=== PATIENT | male | born 1935 | race Caucasian/White ===

== ENCOUNTER → 2017-03-06 | Outpatient (CLI) | payer MEDICARE ==
[2016-03-23 11:00] VITALS: BP 120/81
[~2017-03-06] MED LIST: ALPR0.5T6 PO; ASPI-482 PO; CALC-98 PO; CEFU500T46 PO; DOCU100C53 PO; FERR-3 PO; HYDR-2758 PO; Hydrocodone/Acetaminophen PO; MELO15TA6 PO; METO-269 PO; METO25TA2 PO; METO50TA4 PO; MULT-246 PO; OXYC1TAB7 PO; PRED5TAB PO; SIMV40TA3 PO; SIMV80TA PO
--- NOTE | 2017-03-06 15:19 | CARD ---
APPROVED REPORT EXAM: Two-dimensional and M-mode echocardiogram with Doppler and color Doppler. Other Information Quality : Good INDICATION Cardiac Disease: CAD 2D DIMENSIONS Left Atrium(2D)3.1 (1.6-4.0cm)IVSd1.2 (0.7-1.1cm) Aortic Root(2D)2.9 (2.0-3.7cm)LVDd4.2 (3.9-5.9cm) LVOT Diameter2.4 (1.8-2.4cm)PWd1.1 (0.7-1.1cm) LVDs3.5 (2.5-4.0cm)FS (%) 17.2 % SV29.0 mlLVEF(%)35.0 (>50%) Aortic Valve AoV Peak Newton.92.9cm/sAoV VTI12.5cm AO Peak GR.3.5mmHgLVOT Peak Newton.60.1cm/s LVOT VTI 8.67cmAO Mean GR.2mmHg PAT (VMAX)2.79eo4FEU (VTI)3.12cm2 AI P 1/2 Afll093dm Mitral Valve MV E Oeomjdwn867.7cm/sMV DECEL AOOH812ud MV A Yshrallu90.4cm/sMV VVS00lf E/A Ratio2.0MVA (PHT)6.51cm2 TDI E/Medial E'12.4 Tricuspid Valve TR P. Wqxnmpvq071ol/sRAP [id number] TR Peak Gr.[id number] LEFT VENTRICLE The left ventricle is normal size. There is mild concentric left ventricular hypertrophy. Moderate le ft ventricular systolic dysfunction. The Ejection Fraction is 30-35%. There is global hypokinesis of the left ventricle. RIGHT VENTRICLE The right ventricle is normal size. The right ventricular systolic function is normal. ATRIA The left atrium size is normal. The right atrium size is normal. The interatrial septum is intact wit h no evidence for an atrial septal defect or patent foramen ovale as noted on 2-D or Doppler imaging. AORTIC VALVE The aortic valve is calcified but opens well. Doppler and Color Flow revealed mild to moderate aortic regurgitation. There is no significant aortic valvular stenosis. MITRAL VALVE The mitral valve is normal in structure and function. There is no evidence of mitral valve prolapse. There is no mitral valve stenosis. Doppler and Color-flow revealed trace mitral regurgitation. TRICUSPID VALVE The tricuspid valve is normal in structure and function. Doppler and Color Flow revealed trace tricus pid regurgitation. The PA pressure was estimated at 27 mmHg. There is no tricuspid valve stenosis. PULMONIC VALVE The pulmonary valve is normal in structure and function. Doppler and Color Flow revealed no pulmonic valvular regurgitation. There is no pulmonic valvular stenosis. GREAT VESSELS The aortic root is normal in size. The ascending aorta is normal in size. The IVC was not visualized. PERICARDIAL EFFUSION There is no evidence of significant pericardial effusion. Critical Notification Critical Value: No <Conclusion> Moderate left ventricular systolic dysfunction. The Ejection Fraction is 30-35%. Pacemaker wire noted right ventricle. Mild to moderate aortic regurgitation. Trace mitral regurgitation. Trace tricuspid regurgitation. The PA pressure was estimated at 27 mmHg. There is no evidence of significant pericardial effusion.
== END | disposition home or self-care (01) ==
LOC: ECHO 12:31
PROVIDERS: ATTEND Internal Medicine Cardiovascular Disease
DX: I08.2 Rheumatic disorders of both aortic and tricuspid valves (principal); I25.10 Atherosclerotic heart disease of native coronary artery without angina pectoris; Z95.0 Presence of cardiac pacemaker
CPT/HCPCS: 93306

== ENCOUNTER → 2017-07-27 | Outpatient (CLI) | payer MEDICARE | END | disposition home or self-care (01) | LOC: RAD 09:38 | DX: M19.012 Primary osteoarthritis, left shoulder (principal); M17.0 Bilateral primary osteoarthritis of knee; Z95.0 Presence of cardiac pacemaker | CPT/HCPCS: 73030; 73562 ==

== ENCOUNTER 2018-01-10 11:46 | Inpatient (IN) | payer MEDICARE ==
[2018-01-10 12:13] LABS: ADD MAN DIFF? NO
[2018-01-10 12:18] LABS: BASO % 1 % (0-3); EOS # 0.1 x10^3/uL (0.0-0.7); EOS % 1 % (0-3); HEMATOCRIT 44.2 % (39.0-53.0); HEMOGLOBIN 15.2 g/dL (13.0-17.5); LYMPH # 1.6 x10^3/uL (1.0-4.8); LYMPH % 19 % (24-48); MEAN CORPUSCULAR HEMOGLOBIN 31 pg (25-35); MEAN CORPUSCULAR HGB CONC 34 g/dL (31-37); MEAN CORPUSCULAR VOLUME 90 fL (79-100); MONO # 0.4 x10^3/uL (0.0-1.1); MONO % 5 % (0-9); NEUT # 6.3 x10^3uL (1.8-7.7); NEUT % 76 % (31-73); PLATELET COUNT 228 x10^3/uL (140-400); RED BLOOD COUNT 4.92 x10^6/uL (4.30-5.70); RED CELL DISTRIBUTION WIDTH 12.4 % (11.5-14.5); WHITE BLOOD COUNT 8.3 x10^3/uL (4.0-11.0)
[2018-01-10] MEDS: IV NORMAL SALINE 500ML BAG 500 ML IV (12:18)
[2018-01-10 12:21] LABS: ANION GAP 9 (6-14); BLOOD UREA NITROGEN 10 mg/dL (8-26); CALCIUM 9.6 mg/dL (8.5-10.1); CARBON DIOXIDE 28 mmol/L (21-32); CHLORIDE 98 mmol/L (98-107); GFR 71.4; GLUCOSE 131 mg/dL (70-99); POTASSIUM 4.2 mmol/L (3.5-5.1); SODIUM 135 mmol/L (136-145)
[2018-01-10] MEDS ORDERED: CONTRAST GIVEN. MC (12:30)
[2018-01-10] MEDS ORDERED: ASPIRIN CHEWABLE 81 MG TABLET. PO (12:30)
[2018-01-10] MEDS: IOHEXOL 300 MG/ML 100ML VIAL. IV (12:30)
[2018-01-10 12:35] LABS: TROPONINI < 0.017 ng/mL (0.000-0.055)
[2018-01-10 12:45] LABS: INR 1.1 (0.8-1.1); PROTHROMBIN TIME PATIENT 13.2 SEC (11.7-14.0)
[2018-01-10 12:46] LABS: PARTIAL THROMBOPLASTIN TIME 27 SEC (24-38)
[2018-01-10] MEDS: IV NORMAL SALINE 1000ML BAG 1,000 ML IV (12:48)
[2018-01-10] MEDS ORDERED: ONDANSETRON PF 4 MG/2 ML VIAL. IV ×2 (13:00→15:30)
[2018-01-10] MEDS ORDERED: ACETAMINOPHEN 325 MG TABLET. PO ×2 (13:00→15:30)
[2018-01-10] MEDS: ASPIRIN 300 MG SUPP.RECT PR (13:26)
[2018-01-10 14:13] LABS: THYROID STIM HORMONE (TSH) 1.024 uIU/mL (0.358-3.74)
[2018-01-10] MEDS ORDERED: DOCUSATE SODIUM 100 MG CAPSULE. PO (15:30)
[2018-01-10] MEDS ORDERED: HYDROcodone/APAP 5/325MG 1 TAB TABLET PO (15:30)
[2018-01-10] MEDS ORDERED: hydrALAZINE 20 MG/ML VIAL. IVP (15:30)
[2018-01-10] MEDS ORDERED: MORPHINE SULFATE 2 MG/ML DISP.SYRIN. IV (15:30)
[2018-01-10] MEDS ORDERED: traMADol 50 MG TABLET PO (15:30)
[2018-01-10 16:28] LABS: TROPONINI < 0.017 ng/mL (0.000-0.055)
[2018-01-10 19:16] LABS: TROPONINI < 0.017 ng/mL (0.000-0.055)
[2018-01-10] MEDS: SIMVASTATIN 40 MG TABLET. PO (20:50)
[2018-01-10] MEDS: ALPRAZolam 0.5 MG TABLET PO (20:50)
[2018-01-11] MEDS: IV NORMAL SALINE 1000ML BAG 1,000 ML IV (02:08)
[2018-01-11 05:41] LABS: BILIRUBIN,URINE NEGATIVE (NEG); CLARITY,URINE CLEAR; COLOR,URINE YELLOW; GLUCOSE,URINE NEGATIVE (NEG); NITRITE,URINE NEGATIVE (NEG); PH,URINE 7.5; PROTEIN,URINE NEGATIVE (NEG-TRACE); UROBILINOGEN,URINE 0.2 mg/dL (0.2 mg/dL)
[2018-01-11 05:57] LABS: BACTERIA,URINE FEW /HPF (0-FEW); RBC,URINE OCC /HPF (0-2)
[2018-01-11 07:40] LABS: ADD MAN DIFF? NO
[2018-01-11 07:46] LABS: BASO # 0.1 x10^3/uL (0.0-0.2); BASO % 1 % (0-3); EOS # 0.2 x10^3/uL (0.0-0.7); EOS % 2 % (0-3); HEMATOCRIT 44.7 % (39.0-53.0); HEMOGLOBIN 15.4 g/dL (13.0-17.5); LYMPH # 2.5 x10^3/uL (1.0-4.8); LYMPH % 34 % (24-48); MEAN CORPUSCULAR HEMOGLOBIN 31 pg (25-35); MEAN CORPUSCULAR HGB CONC 35 g/dL (31-37); MEAN CORPUSCULAR VOLUME 90 fL (79-100); MONO # 0.7 x10^3/uL (0.0-1.1); MONO % 10 % (0-9); NEUT # 3.9 x10^3uL (1.8-7.7); NEUT % 53 % (31-73); PLATELET COUNT 219 x10^3/uL (140-400); RED BLOOD COUNT 4.96 x10^6/uL (4.30-5.70); RED CELL DISTRIBUTION WIDTH 12.4 % (11.5-14.5); WHITE BLOOD COUNT 7.4 x10^3/uL (4.0-11.0)
[2018-01-11 07:58] LABS: ANION GAP 7 (6-14); BLOOD UREA NITROGEN 9 mg/dL (8-26); CALCIUM 9.3 mg/dL (8.5-10.1); CARBON DIOXIDE 29 mmol/L (21-32); CHLORIDE 102 mmol/L (98-107); CREATININE 0.9 mg/dL (0.7-1.3); GFR 80.6; GLUCOSE 90 mg/dL (70-99); POTASSIUM 4.1 mmol/L (3.5-5.1); SODIUM 138 mmol/L (136-145)
[2018-01-11] MEDS: MULTIVITAMIN with MINERAL TABLET. PO (09:57)
[2018-01-11] MEDS: ALPRAZolam 0.5 MG TABLET PO (09:57)
[2018-01-11] MEDS: predniSONE 5 MG TABLET PO (09:58)
[2018-01-11] MEDS: METOPROLOL SUCC 24HR ER 50 MG TAB.ER.24H. PO (09:58)
[2018-01-11] MEDS: ASPIRIN ENTERIC COATED 81 MG TABLET.DR. PO (09:58)
[2018-01-11] MEDS: CALCIUM CARB/VIT D3 500/200 TABLET. PO (09:58)
[2018-01-11 10:16] LABS: CHOLESTEROL 122 mg/dL (0-200); HDLC 51 mg/dL (40-60); LDLC 51 mg/dL (0-100); NON-HDL CHOLESTEROL 71 mg/dL (0-129); TRIGLYCERIDES 100 mg/dL (0-150); VLDLC 20 mg/dL (0-40)
[2018-01-11 10:17] LABS: CHOLESTEROL/HDL RATIO 2.4
[2018-01-11 11:30] LABS: VITAMIN-B12 316 pg/mL (247-911)
[2018-01-11] MEDS ORDERED: ENOXAPARIN 40 MG/0.4 ML SYRINGE. SQ (21:00)
== END 2018-01-11 12:27 | disposition home or self-care (01) | DRG 66 ==
LOC: ER 11:46 → 1 WEST ICU 13:00 → 6 SOUTH 16:49
DX: I63.9 Cerebral infarction, unspecified (principal); I25.10 Atherosclerotic heart disease of native coronary artery without angina pectoris; I10 Essential (primary) hypertension; E78.5 Hyperlipidemia, unspecified; F41.9 Anxiety disorder, unspecified; E78.00 Pure hypercholesterolemia, unspecified; M19.90 Unspecified osteoarthritis, unspecified site; Z82.49 Family history of ischemic heart disease and other diseases of the circulatory system; Z95.5 Presence of coronary angioplasty implant and graft; Z95.0 Presence of cardiac pacemaker; Z98.49 Cataract extraction status, unspecified eye
CPT/HCPCS: 36415; 70450; 70496; 70498; 80048; 80061; 81001; 82607; 84443; 84484; 85025; 85610; 85730; 93005; 93306; 96360; 99285; 99285-25; J7040; J7512